=== PATIENT | male | born 1940 | race Caucasian/White ===

== ENCOUNTER 2020-08-28 13:56 | Emergency (ER) | payer MEDICARE, OTHER, SELFPAY ==
[2020-08-28 14:05] VITALS: BP 156/62; PULSE 109; RESP 18; TEMP 38.3; O2SAT 95
--- NOTE | 2020-08-28 14:24 | ED.MALEGU ---
HPI - Male Genitourinary General Chief complaint: Urogenital-Male Stated complaint: kidney and bladder issues Time Seen by Provider: 08/28/20 14:20 Source: patient Mode of arrival: ambulatory Limitations: no limitations History of Present Illness HPI Narrative: Donavon Jang is a 80 to male with a PMH of uti, renal cancer, htn, diabetes, high cholesterol, glaucoma, bph, [facility] urinary frequency and fever, complaints of bilateral back pain. Patient has a fever of 100.9 on arrival here he is mildly tachycardic and complaining of bilateral back pain, urine is cloudy with visible blood; states that he has urinary frequency as well as hesitancy in starting stream He has appoint with his PCP on September 05 and was treated 2 years ago for renal cancer Related Data Home Medications Medication Instructions Recorded Confirmed albuterol sulfate 1 inh INHALATION QID 08/28/20 08/28/20 allopurinol 100 mg PO DAILY 08/28/20 08/28/20 atorvastatin 5 PO DAILY 08/28/20 fluticasone propionate 2 spray INTRANASAL DAILY 08/28/20 08/28/20 furosemide 20 mg PO DAILY 08/28/20 08/28/20 gabapentin 100 mg PO BID 08/28/20 08/28/20 gemfibrozil 600 mg PO DAILY 08/28/20 08/28/20 glipizide 5 mg PO BID 08/28/20 08/28/20 latanoprost 1 drp EACH EYE DAILY 08/28/20 08/28/20 lisinopril-hydrochlorothiazide 1 tablet PO DAILY 08/28/20 08/28/20 metoprolol succinate 50 mg PO DAILY 08/28/20 08/28/20 omeprazole 20 mg PO DAILY 08/28/20 08/28/20 sertraline 50 mg PO DAILY 08/28/20 08/28/20 tamsulosin 0.4 mg PO DAILY 08/28/20 08/28/20 tiotropium bromide [Spiriva with 1 cap INHALATION DAILY 08/28/20 08/28/20 HandiHaler] Allergies Allergy/AdvReac Type Severity Reaction Status Date / Time Penicillins Allergy Unknown Hives / Verified 08/28/20 14:30 Red Face gadobenic acid Allergy Unknown Verified 08/28/20 14:30 [From contrast - MRI] iohexol Allergy Unknown Verified 08/28/20 14:30 [From contrast - CT, X-RAY] metformin AdvReac Unknown Nausea and Verified 08/28/20 14:30 Vomiting Review of Systems Review of Systems: Narrative: CONSTITUTIONAL: Has fever, chills, sweats. EYES: Denies visual changes, redness, discharge. ENT: Denies rhinorrhea, congestion, sore throat, otalgia. CARDIOVASCULAR: Denies chest pain, palpitations, edema. RESPIRATORY: Denies dyspnea, wheezing, cough GASTROINTESTINAL: Denies abdominal pain, nausea, vomiting, diarrhea. GENITOURINARY: has dysuria, has hematuria, no abnormal discharge SKIN: Denies rash or itching. NEUROLOGIC: Denies numbness, or focal weakness. PSYCHIATRIC: Denies anxiety or depression. [facility] Past Medical History Medical History Anxiety BPH (benign prostatic hyperplasia) Diabetes mellitus Glaucoma High cholesterol HTN (hypertension) Renal cancer Family History Family History Other Diabetes mellitus Social History Social History (Updated 08/28/20 @ 14:38 by Lesia Deleon CNP) Smoking status: Former smoker Alcohol intake: former Comments At time of signature, I agree with nursing past medical, surgical, social and family history. There is no relevant family history pertinent to the presenting complaint. Exam Narrative: Exam Narrative: GENERAL: This is a well-nourished, well-developed patient, in mild distress. HEAD: normocephalic, atraumatic. EYES: Sclera clear/white. Vision is grossly intact. EARS: External ears normal, Hearing grossly intact. NOSE: External nose normal without nasal discharge, nares without redness, no rhinorrhea. THROAT: Mucous membranes moist, NECK: Neck supple, non-tender CARDIOVASCULAR: tachycardic rate and rhythm without murmurs, gallops, or rubs. RESPIRATORY: Clear to auscultation. Breath sounds equal bilaterally. No wheezes, rales, or rhonchi. GASTROINTESTINAL: Abdomen soft, non-tender, SKIN: warm, intact with no suspicio
[2020-08-28 14:27] VITALS: PULSE 104
[2020-08-28 14:46] VITALS: BP 156/62; PULSE 104; RESP 18; TEMP 38.3; O2SAT 95
== END 2020-08-28 14:47 | disposition home or self-care (01) ==
PROVIDERS: Emergency Provider Nurse Practitioner; PCP Internal Medicine
DX: N30.01 Acute cystitis with hematuria (principal); N40.0 Benign prostatic hyperplasia without lower urinary tract symptoms; E11.39 Type 2 diabetes mellitus with other diabetic ophthalmic complication; H40.9 Unspecified glaucoma; H42 Glaucoma in diseases classified elsewhere; E78.00 Pure hypercholesterolemia, unspecified; I10 Essential (primary) hypertension; Z87.891 Personal history of nicotine dependence; Z85.528 Personal history of other malignant neoplasm of kidney
CPT/HCPCS: 81003; 87077; 87086; 87088; 87186; 99203; G0463

== ENCOUNTER 2023-02-01 10:05 | Emergency (ER) | payer MEDICARE, OTHER, SELFPAY ==
[2023-02-01 10:13] VITALS: BP 131/53; PULSE 75; RESP 18; TEMP 36.8; O2SAT 96
--- NOTE | 2023-02-01 10:29 | ED.URI ---
HPI - URI/Sore Throat General Stated Complaint: sore throat and head congestion Time Seen by Provider: 02/01/23 10:28 Source: patient and RN notes reviewed Mode of arrival: ambulatory Limitations: no limitations History of Present Illness HPI Narrative: 82-year-old male with history of COPD presents with concern for 3 day history of sore throat, cough, shortness of breath, nasal congestion. He denies chills, sweats, fever, reports body aches. He reports he has been using his albuterol inhaler with some relief. MD elicited complaint: cough, sore throat and nasal congestion Related Data Home Medications Medication Instructions Recorded Confirmed albuterol sulfate 90 mcg/actuation 2 inh inhalation QID 08/28/20 02/01/23 aerosol inhaler allopurinol 100 mg tablet 100 mg PO DAILY 08/28/20 02/01/23 atorvastatin 10 mg tablet 10 mg PO DAILY 08/28/20 fluticasone propionate 50 2 spray intranasal DAILY 08/28/20 08/28/20 mcg/actuation nasal spray,suspension furosemide 20 mg tablet 20 mg PO DAILY 08/28/20 02/01/23 gabapentin 100 mg tablet 100 mg PO BID 08/28/20 02/01/23 gemfibrozil 600 mg tablet 600 mg PO DAILY 08/28/20 08/28/20 glipizide 5 mg tablet 10 mg PO BID 08/28/20 02/01/23 latanoprost 0.005 % eye drops 1 drp EACH EYE DAILY 08/28/20 08/28/20 lisinopril 20 1 tablet PO DAILY 08/28/20 08/28/20 mg-hydrochlorothiazide 12.5 mg tablet metoprolol succinate 50 mg 50 mg PO DAILY 08/28/20 08/28/20 tablet,extended release 24 hr omeprazole 20 mg tablet,delayed 20 mg PO DAILY 08/28/20 08/28/20 release sertraline 50 mg tablet 50 mg PO DAILY 08/28/20 08/28/20 tamsulosin 0.4 mg capsule 0.4 mg PO DAILY 08/28/20 08/28/20 tiotropium bromide 18 mcg capsule 1 cap inhalation DAILY 08/28/20 08/28/20 with inhalation device (Spiriva with HandiHaler) aspirin 81 mg capsule 81 mg PO DAILY 02/01/23 02/01/23 fluticasone propionate 50 1 spray intranasal Q12H 02/01/23 02/01/23 mcg/actuation nasal spray,suspension latanoprost 0.005 % eye drops 1 drp EACH EYE DAILY 02/01/23 02/01/23 lisinopril 20 1 tablet PO DAILY 02/01/23 02/01/23 mg-hydrochlorothiazide 12.5 mg tablet magnesium 200 mg tablet 425 mg PO DAILY 02/01/23 02/01/23 [id number] tablet tablet 02/01/23 02/01/23 sitagliptin phosphate 100 mg 100 mg PO DAILY 02/01/23 02/01/23 tablet (Januvia) Allergies Allergy/AdvReac Type Severity Reaction Status Date / Time Penicillins Allergy Unknown Hives / Verified 02/01/23 10:15 Red Face gadobenic acid Allergy Unknown Verified 02/01/23 10:15 [From contrast - MRI] iohexol Allergy Unknown Verified 02/01/23 10:15 [From contrast - CT, X-RAY] metformin AdvReac Unknown Nausea and Verified 02/01/23 10:15 Vomiting Review of Systems Review of Systems: CONSTITUTIONAL: Denies malaise, chills, sweats, or fever. EYES: Denies visual changes, redness, or discharge. ENT: Reports rhinorrhea, congestion, otalgia and sore throat. CARDIOVASCULAR: Denies chest pain, palpitations, or edema. RESPIRATORY: Reports cough, occasional dyspnea. GASTROINTESTINAL: Denies abdominal pain, nausea, vomiting, diarrhea SKIN: Denies rash or itching. MUSCULOSKELETAL: Reports myalgia. NEUROLOGIC: Denies headache. All systems reviewed & are unremarkable except as noted in HPI and below PMFSH Past Medical History Medical History Anxiety BPH (benign prostatic hyperplasia) Diabetes mellitus Glaucoma High cholesterol HTN (hypertension) Renal cancer Family History Family History Other Diabetes mellitus Social History Social History (Updated 08/28/20 @ 14:38 by Lesia Deleon, MAZIN) Smoking status: Former smoker Alcohol intake: former Comments At time of signature, agree with nursing past medical, surgical, social and family history. There is no relevant family history pertinent to the prese
[2023-02-01 11:08] VITALS: BP 131/53; PULSE 75; RESP 18; TEMP 36.8; O2SAT 96
== END 2023-02-01 10:40 | disposition home or self-care (01) ==
PROVIDERS: Emergency Provider Nurse Practitioner; PCP Internal Medicine
DX: J44.1 Chronic obstructive pulmonary disease with (acute) exacerbation (principal); J06.9 Acute upper respiratory infection, unspecified; N40.0 Benign prostatic hyperplasia without lower urinary tract symptoms; E11.39 Type 2 diabetes mellitus with other diabetic ophthalmic complication; H42 Glaucoma in diseases classified elsewhere; Z79.84 Long term (current) use of oral hypoglycemic drugs; E78.00 Pure hypercholesterolemia, unspecified; I10 Essential (primary) hypertension; J44.9 Chronic obstructive pulmonary disease, unspecified; Z85.528 Personal history of other malignant neoplasm of kidney; Z87.891 Personal history of nicotine dependence
CPT/HCPCS: 99213; G0463

== ENCOUNTER 2023-08-07 12:21 | Emergency (ER) | payer MEDICARE, OTHER, SELFPAY ==
[2023-08-07 12:32] VITALS: BP 131/61; PULSE 67; RESP 16; TEMP 36.3; O2SAT 99
[2023-08-07 12:37] VITALS: BP 131/61; PULSE 67; RESP 16; TEMP 36.3; O2SAT 99
--- NOTE | 2023-08-07 12:43 | ED.GENADULT ---
HPI - General Adult General Chief complaint: Upper Respiratory Infection Stated complaint: cough/ear Source: patient, RN notes reviewed and old records reviewed Mode of arrival: ambulatory Limitations: no limitations History of Present Illness HPI narrative: 83-year-old male [facility] with complaints cough, congestion, bilateral ear pain this started over a week ago. Patient states cough is productive with green phlegm and green nasal drainage. Patient taking Mucinex with no relief. Patient denies weakness, dizziness, chest pain, shortness breath. Related Data Home Medications Medication Instructions Recorded Confirmed albuterol sulfate 90 mcg/actuation 2 inh inhalation QID 08/28/20 08/07/23 aerosol inhaler allopurinol 100 mg tablet 100 mg PO DAILY 08/28/20 08/07/23 atorvastatin 10 mg tablet 10 mg PO DAILY 08/28/20 08/07/23 furosemide 20 mg tablet 20 mg PO DAILY 08/28/20 08/07/23 glipizide 5 mg tablet 10 mg PO BID 08/28/20 08/07/23 metoprolol succinate 50 mg 50 mg PO DAILY 08/28/20 08/07/23 tablet,extended release 24 hr omeprazole 20 mg tablet,delayed 20 mg PO DAILY 08/28/20 08/07/23 release sertraline 50 mg tablet 50 mg PO DAILY 08/28/20 08/07/23 tiotropium bromide 18 mcg capsule 1 cap inhalation DAILY 08/28/20 08/07/23 with inhalation device (Spiriva with HandiHaler) aspirin 81 mg capsule 81 mg PO DAILY 02/01/23 08/07/23 latanoprost 0.005 % eye drops 1 drp EACH EYE DAILY 02/01/23 08/07/23 lisinopril 20 1 tablet PO DAILY 02/01/23 08/07/23 mg-hydrochlorothiazide 12.5 mg tablet magnesium 200 mg tablet 425 mg PO DAILY 02/01/23 08/07/23 [id number]-[id number]-[id number] tablet 1 tablet PO DAILY 02/01/23 08/07/23 rivaroxaban 15 mg tablet 15 mg PO QPM 02/01/23 08/07/23 sitagliptin phosphate 100 mg 100 mg PO DAILY 02/01/23 08/07/23 tablet (Januvia) gabapentin 100 mg capsule 100 mg PO BID 08/07/23 08/07/23 Allergies Allergy/AdvReac Type Severity Reaction Status Date / Time Penicillins Allergy Unknown Hives / Verified 08/07/23 12:32 Red Face gadobenic acid Allergy Unknown Verified 08/07/23 12:32 [From contrast - MRI] iohexol Allergy Unknown Verified 08/07/23 12:32 [From contrast - CT, X-RAY] metformin AdvReac Unknown Nausea and Verified 08/07/23 12:32 Vomiting Review of Systems Constitutional: Constitutional: Reports no additional constitutional complaints, Denies body ache(s), Denies chills, Denies fatigue, Denies fever(s) and Denies headache(s) Eyes: Eyes: Reports no additional eye complaints and Denies blurry vision ENT: Reports system reviewed and no additional complaints, except as documented, Denies vertigo, Denies dizziness, Denies ear discharge, Reports otalgia, Denies facial pain, Denies headache(s), Reports nasal congestion, Reports nasal discharge, Denies sinus pain, Reports sinus pressure and Denies sore throat Cardiovascular: Cardiovascular: Reports no additional cardiovascular complaints, Denies chest pain, Denies chest pain at rest, Denies rapid heart rate and Denies dyspnea Respiratory: Respiratory: Reports no additional respiratory complaints, Reports chest congestion, Reports cough, Reports excessive phlegm production ( Green), Denies pain on inspiration, Denies pain with cough and Denies dyspnea Gastrointestinal: Gastrointestinal: Denies abdominal pain, Denies diarrhea, Denies nausea and Denies vomiting Integumentary/Breasts: Skin/Breast: Denies rash Neurologic: Reports system reviewed and no additional complaints, except as documented, Denies vertigo, Denies dizziness and Denies headache(s) Endocrine: Endocrine: Denies fatigue [facility] Past Medical History Medical History Anxiety BPH (benign prostatic hyperplasia) Diabetes mellitus Glaucoma High cholesterol HTN (hypertension) Renal cancer Family History Family History Other Diabet
== END 2023-08-07 12:55 | disposition home or self-care (01) ==
PROVIDERS: Emergency Provider Registered Nurse; PCP Internal Medicine
DX: J40 Bronchitis, not specified as acute or chronic (principal); J32.9 Chronic sinusitis, unspecified; E11.9 Type 2 diabetes mellitus without complications; I10 Essential (primary) hypertension; Z85.528 Personal history of other malignant neoplasm of kidney; Z79.82 Long term (current) use of aspirin; Z79.899 Other long term (current) drug therapy; Z87.891 Personal history of nicotine dependence
CPT/HCPCS: 99213; G0463